=== PATIENT | female | born 2005 | race African-American/Black ===

== ENCOUNTER 2025-06-16 04:25 | Emergency (ER) | payer SELFPAY ==
[2025-06-16 04:28] VITALS: BP 142/68; PULSE 91; RESP 20; TEMP 36.8; O2SAT 99; BMI 22.2
--- NOTE | 2025-06-16 04:56 | ED.URI ---
HPI - URI/Sore Throat General Chief Complaint: Upper Respiratory Symptoms Stated Complaint: sinus infection Time Seen by Provider: 06/16/25 04:40 Source: patient Mode of arrival: ambulatory Limitations: no limitations History of Present Illness ED Provider: Dr. Angelica Lala HPI Narrative: Patient comes to the emergency room complaining of congestion, sinus pressure, right ear pain. Patient states that about 1 week ago, patient started complaining of runny nose, congestion. Patient states that she went to [place], took some veic-gsv-cfbsiyh medication. Initially, she started feeling better but shortly after, the symptoms of the URI returned. Patient now complaining of pain in the bridge of the nose, pressure on bilateral aspects of the face and right-sided ear pain. Related Data Previous Rx's ?Medication ?Instructions ?Recorded amoxicillin 500 mg-potassium 1 tab PO TID 7 days #21 tabs 06/16/25 clavulanate 125 mg tablet (Augmentin) ibuprofen 600 mg tablet 600 mg PO Q8H PRN fever or pain 06/16/25 #20 tabs Allergies Allergy/AdvReac Type Severity Reaction Status Date / Time No Known Allergies Allergy Verified 06/16/25 04:30 Review of Systems Review of Systems: Constitutional : No Weight loss, No Fever, No Chills, No Night Sweats, No Fatigue, No Malaise ENT/Mouth : No Hearing loss, complaining of right-sided ear pain, bilateral nasal congestion, sinus pain especially in the top of the nose, pressure in both cheeks Eyes: No Eye Pain, No Swelling, No Redness, No Foreign Body, No Discharge, No Vision Changes Cardiovascular : No Chest Pain, No SOB, No Dyspnea on Exertion, No Orthopnea, No Edema, No Palpitations Respiratory : No Cough, No Sputum, No Wheezing, No Smoke Exposure, No Dyspnea Gastrointestinal : No Nausea, No Vomiting, No Diarrhea, No Constipation, No abdominal Pain, No Hematochezia, No Melena Genitourinary : no irregular bleeding, No Dysuria, No Urinary Frequency, No Hematuria, No Urinary Incontinence, No Urgency, No Flank Pain, No Urinary Flow Changes, No Hesitancy Musculoskeletal : No joint pain, No Myalgias, No Joint Swelling Skin : No Skin Lesions, No rash Neuro : No Weakness, No Numbness, No Paresthesias, No Loss of Consciousness, No Dizziness, No Headache Psych : No Anxiety/Panic, No Depression, No SI/HI/AH/VH, No Social Issues, Heme/Lymph: No Bruising, No Bleeding,No Lymphadenopathy Endocrine : No Polyuria, No Polydipsia, No Temperature Intolerance Physical Exam Exam: Exam: Appearance: Alert. Oriented X3. No acute distress. Eyes: Pupils equal, round and reactive to light. ENT: Pharynx normal. Right ear has fluid behind the tympanic membrane, slightly erythematous, left ear within normal limits. Normal oropharynx, no obvious abscesses visualized, uvula is midline. Bilateral nasal turbinates are swollen, pain to palpation over the ethmoid sinuses Neck: Normal inspection. Neck supple. No lymph nodes noted. No crepitus CVS: Normal heart rate and rhythm. Pulses normal. Normal S1 and S2 Respiratory: No respiratory distress. Breath sounds normal. No Wheezing. No rales Abdomen: Soft and nontender. No rigidity. No distention. Skin: Skin warm and dry. Normal skin color. Normal skin turgor. Extremities: No lower extremity edema. No Lacerations. No Rash Neuro: Oriented X 3. No motor deficit. No sensory deficit. Moving all extremities. No slurred speech. CN 2 through 12 grossly intact Psych: calm, cooperative, normal affect Vital Signs: Vital Signs: Last Vital Signs Temp 98.2 F 06/16/25 04:28 Pulse 91 06/16/25 04:28 Resp 20 06/16/25 04:28 BP 142/68 H 06/16/25 04:28 Pulse Ox 99 06/16/25 04:28 O2 Del Method Room Air 06/16/25 04:28 BMI result Body Mass Index 22.2 Medical Decision Making Medical Decision Making [facility] Narrative: Patient's symptoms have gradually been getting worse despite [id number] medications to treat URI. The pain and discomfort is progressing, and now it is affecting the right ear. Patient was given the 1st dose of antibiotics for sinusitis/otitis here in the emergency room, Augmentin. Discharge Plan Discharge Clinical Impression: Sinusitis, Otalgia Patient Disposition: Home, Self-Care Instructions: Sinusitis (ED), Earache (ED) Additional Instructions: Please follow-up with your primary care physician tomorrow. If you have any worsening or new symptoms, please return to the emergency room or call 911 Prescriptions: New amoxicillin-pot clavulanate [Augmentin] 500-125 mg tablet 1 tab PO TID 7 Days Qty: 21 0RF ibuprofen 600 mg tablet 600 mg PO Q8H PRN (Reason: fever or pain) Qty: 20 0RF
--- OUTSIDE RECORDS SUMMARY | 2025-06-16 05:11 | XMS_ITS | Continuity of Care Document ---
Author Organization [facility] ([facility]) Support Name Relationship Address Phone ASHLI SALAMANCA Mother Unknown Unavailable History of medication use Effective Period Medication Code Medication Name Dosage Activity Status Info rmant 07/27/2024 08:00:00 PDT [id number] CEPHALEXIN 20 MG Prescribed completed [facility] Allergies, adverse reactions, alerts Code Description Status Start Date Substance Reaction Severity Criticality Informant NKMA No Known Medication Allergies Active (qualifi er value) - - - - - [facility]
--- OUTSIDE RECORDS SUMMARY | 2025-06-16 05:12 | XMS_ITS | Clinical Summary ---
Author Organization [facility] Address [id number] [place] [id number] Care Team Providers Care Gas Inspector Name Role Phone Servando Martínez Palma Primary Care Provider [phone] Allergies No known active allergies Medications fluticasone (FLONASE) 50 mcg/actuation Nasl SpSn 1 [place] by Both Nares route daily. Active pseudoephedrine (Sudafed) 30 mg Tablet Take 1 tablet by mouth every 6 hours if needed for congestion. 60 tablet 08/15/2024 Active Active Problems Problem Noted Date Diagnosed Date Periodic headache syndrome, not intractable 12/2022 Immunizations Immunization Administration Dates Next Due DTaP (INFANRIX, TRIPEDIA) 04/15/2010,,06/15/2006,05/01,02/09/2006 Hep A, Pediatric/Adolescent 12/22/2007, 7 Hep B, Pediatric/Adolescent 06/15/2006, 6,2005 Hib, Unspecified 03/22/2007, 6,05/01/2006,02/09 IPV Polio 04/15/2010, 7,05/01/2006,02/09 Influenza A Monovalent (2009 H1N1), All Formulations 08/02/2009 Influenza Trivalent IM 08/02/2009 Influenza, Unspecified 09/06/2012,2008,07/18/2008,07/15 MMR 04/15/2010 MMRV (PROQUAD) 12/28/2006 MenB-4C meningococcal B (MEGGAN SERO) vaccine 11/17/2022 Meningococcal Conjugate Miramontes CWY-CRM (MENVEO) 11/17/2022 Meningococcal Conjugate Miramontes CWY-D (MENACTRA) 04/07/2017 Pneumococcal Conjugate PCV7 12/28/2006,1 ,05/01/2006,02/09 Tdap 04/07/2017 Varicella 04/15/2010 Social History Tobacco Use Types Packs/Day Years Used Date Smoking Tobacco: Never Assessed Tobacco Cessation:Counseling Given: Not Answered Comments Unknown Sex and Gender Information Value Date Recorded Sex Assigned at Female 02/11/2023 12:31 PM PDT Legal Sex Female 10:33 PM PDT Gender Identity Female 10/30/2022 5:36 PM PST Sexual Orientation Straight 09/18/2023 4: 53 PM PST Last Filed Vital Signs Vital Sign Reading Time Taken Comments Blood Pressure 119/84 08/15/2024 10:10 AM PST Pulse 91 08/15/2024 10:10 AM PST Temperature 37 C (98.6 F) 08/15/2024 10:10 AM PST Respiratory Rate 18 08/15/2024 10:10 AM PST Oxygen Saturation 99% 08/15/2024 10:10 AM PST Inhaled Oxygen Concentration - - Weight 72.1 kg (159 lb) 08/15/2024 10:10 AM PST Height 177.8 cm (5' 10 ) 08/15/2024 10:10 AM PST Body Mass Index 22.81 08/15/2024 10:10 AM PST Body Mass Index Percentile 64.87% 08/15/2024 10: 10 AM PST Growth Chart: [facility] (Girls, 2- 20 Years) Plan of Treatment Health Maintenance Due Date Last Done Comments HPV Vaccines (1 - 3-dose series) 2020 Meningococcal B Vaccine (2 of 2 - Bexsero SCDM 2-dose series) 05/20/2023 11/17/2022 Hepatitis C Screening 12/03/2023 Depression Screening (Billing for this is optional) 08/31/2024 Social Drivers of Health (SDoH) 08/31/2024 COVID-19 Vaccine ( season) 2025 Influenza Vaccine (#1) 2025 3, 08/02/2009, 06/14/2009, Additional history exists DTaP, Tdap, and Td Vaccines (7 - Td or Tdap) 04/07/2027 04/07/2017, 04/15/2010, 03/22/2007, Additional history exists Hepatitis B Vaccines Completed 06/15/2006, 01/02/2006, 2005 Pneumococcal Vaccines Aged Out 12/28/2006 , 06/15/2006, 05/01/2006, Additional history exists No longer eligible based on patient's age to complete this topic Meningococcal Vaccine Completed 11/17/2022, 017 Insurance [facility] HMO [employer] [place] [address] [place] [address] Care Teams Gas Inspector Relationship Specialty Start Date End Date Servando Martínez [id number] [phone] PCP - General Pediatrics 05/22/23
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
[2025-06-16 05:14] VITALS: BP 142/68; PULSE 91; RESP 20; TEMP 36.8; O2SAT 99
== END 2025-06-16 05:15 | disposition home or self-care (01) ==
PROVIDERS: Emergency Provider Emergency Medicine
DX: J32.9 Chronic sinusitis, unspecified (principal); H92.01 Otalgia, right ear; R09.89 Other specified symptoms and signs involving the circulatory and respiratory systems
CPT/HCPCS: 99283